=== PATIENT | male | born 1945 | race African-American/Black ===

== ENCOUNTER 2016-12-11 15:51 | Inpatient (IN) | payer BC, MEDICARE ==
[~2016-12-11] VITALS: Ht 188 cm; Wt 103.0 kg
[2016-12-11] MEDS ORDERED: LISINOPRIL 10MG TABLET PO ONE (16:30)
[2016-12-11] MEDS ORDERED: AMLODIPINE 2.5MG TABLET PO ONE (16:30)
[2016-12-11 16:49] LABS: BASOPHILS % 1.2 % (0.0-2.0); EOSINOPHILS % 1.4 % (0.0-5.0); HEMATOCRIT. 25.7 % (42.0-52.0); HEMOGLOBIN. 8.2 g/dL (14.0-18.0); LYMPHOCYTES % 9.4 % (20.0-50.0); MEAN CORPUSCULAR HEMOGLOBIN 26.1 pg (28.0-32.0); MEAN CORPUSCULAR VOLUME 81.9 fL (80.0-94.0); MEAN PLATELET VOLUME 8.1 fl (7.4-10.4); MONOCYTES % 10.4 % (2.0-8.0); NEUTROPHILS % 77.6 % (40.0-76.0); PLATELET 363 x1000/uL (130-400); RED BLOOD CELL COUNT 3.14 mill/uL (4.7-6.1); RED CELL DISTRIBUTION WIDTH 18.5 % (11.6-14.6)
[2016-12-11 16:53] LABS: CHLORIDE 93 mEq/L (98-107)
[2016-12-11 16:54] LABS: INR 1.1
[2016-12-11 17:03] LABS: CARBON DIOXIDE 33 mEq/L (21-32)
[2016-12-11 17:04] LABS: TROPONIN I 0.06 ng/mL (0.00-0.04)
[2016-12-11 20:00] VITALS: BP 163/80
[2016-12-11] MEDS ORDERED: CINA30 PO (20:58)
[2016-12-11] MEDS ORDERED: FURO-151 PO (20:58)
[2016-12-11] MEDS ORDERED: ATEN100T PO (20:58)
[2016-12-11 21:00] VITALS: BP 163/80
[2016-12-11] MEDS ORDERED: NIFE30TA94 PO (21:01)
[2016-12-11] MEDS ORDERED: CLON0.1T PO (21:01)
[2016-12-11] MEDS ORDERED: HYDR100T26 PO (21:01)
[2016-12-11] MEDS ORDERED: DORZ10DR7 BOTHEYE (21:05)
[2016-12-11] MEDS ORDERED: TIMO15DR12 BOTHEYE (21:05)
[2016-12-11] MEDS ORDERED: BIMA2.5D4 BOTHEYE (21:05)
[2016-12-11] MEDS ORDERED: BRIM15DR2 BOTHEYE (21:05)
[2016-12-11] MEDS ORDERED: IPRATROPIUM/ALBUTEROL 0.5-3(2.5)MG/3ML NEB HHN PRN (21:45)
[2016-12-11] MEDS ORDERED: HYDROCODONE/ACETAMINOPHEN 5/325MG TABLET PO PRN (21:45)
[2016-12-11] MEDS: LOSARTAN POTASSIUM 50 MG TABLET PO SCH (22:13)
[2016-12-11] MEDS: METOPROLOL TARTRATE 50MG TABLET PO SCH (22:13)
[2016-12-12] VITALS: BP 183/89
[2016-12-12 01:20] VITALS: BP 176/86
[2016-12-12] MEDS ORDERED: CLONIDINE 0.2MG TABLET PO PRN (02:00)
[2016-12-12 04:00] VITALS: BP 165/75
[2016-12-12 05:55] VITALS: BP 156/82
[2016-12-12 08:00] VITALS: BP 144/94
[2016-12-12] MEDS ORDERED: TIMOLOL MALEATE 0.5% OPHTH DROPS 5ML EACHEYE SCH (09:00)
[2016-12-12] MEDS ORDERED: DORZOLAMIDE 2% OPHTH 10 ML BOTTLE BOTHEYE SCH (09:00)
[2016-12-12] MEDS ORDERED: ASPIRIN 81MG TABLET PO SCH (09:00)
[2016-12-12] MEDS ORDERED: BRIMONIDINE 0.2% OPHTH DROPS 5ML EACHEYE SCH (09:00)
[2016-12-12] MEDS ORDERED: PANTOPRAZOLE SODIUM 40 MG/VIAL IV SCH (09:00)
[2016-12-12] MEDS: LOSARTAN POTASSIUM 50 MG TABLET PO SCH (09:04)
[2016-12-12] MEDS: METOPROLOL TARTRATE 50MG TABLET PO SCH (09:04)
[2016-12-12] MEDS ORDERED: LATANOPROST 0.005% OPHTH DROPS 2.5ML EACHEYE SCH (21:00)
== END 2016-12-12 12:05 | disposition left against medical advice (07) | DRG 314 ==
LOC: ER 16:02 → 7WST 17:05 → ENRESERV 18:53
PROVIDERS: ADMIT Internal Medicine; ATTEND Internal Medicine
DX: T82.838A Hemorrhage due to vascular prosthetic devices, implants and grafts, initial encounter (principal); N18.6 End stage renal disease; I12.0 Hypertensive chronic kidney disease with stage 5 chronic kidney disease or end stage renal disease; D63.8 Anemia in other chronic diseases classified elsewhere; N25.81 Secondary hyperparathyroidism of renal origin; Y84.1 Kidney dialysis as the cause of abnormal reaction of the patient, or of later complication, without mention of misadventure at the time of the procedure; Z53.21 Procedure and treatment not carried out due to patient leaving prior to being seen by health care provider; H40.9 Unspecified glaucoma; Z99.2 Dependence on renal dialysis; Z79.899 Other long term (current) drug therapy
CPT/HCPCS: 36415; 71010; 80053; 83880; 84484; 85025; 85610; 86850; 86900; 93005; 99285; C9113

== ENCOUNTER 2017-02-09 02:23 | Inpatient (IN) | payer MEDICARE ==
[~2017-02-09] VITALS: Ht 188 cm; Wt 103.0 kg
[~2017-02-09 02:23] MED LIST: ATEN100T PO; BIMA2.5D4 BOTHEYE; BRIM15DR2 BOTHEYE; CINA30 PO; CLON0.1T PO; DORZ10DR7 BOTHEYE; FURO-151 PO; HYDR100T26 PO; NIFE30TA94 PO; TIMO15DR12 BOTHEYE
[2017-02-09] MEDS ORDERED: LABETALOL HCL 20MG/4ML CARPUJECT IV ONE (02:45)
[2017-02-09] MEDS ORDERED: NITROGLYCERIN OINT 1GM/INCH UDPKT TD ONE (02:45)
[2017-02-09] MEDS ORDERED: FUROSEMIDE 40MG/4ML VIAL IV ONE (02:45)
[2017-02-09] MEDS ORDERED: ASPIRIN 81MG TABLET PO ONE (02:45)
[2017-02-09] MEDS ORDERED: LABETALOL 5MG/ML SYR 20 MG/4 ML SYRINGE IV NR (03:00)
[2017-02-09 03:07] LABS: HEMOGLOBIN. 8.4 g/dL (14.0-18.0); MEAN CORPUSCULAR HEMOGLOBIN 25.6 pg (28.0-32.0); MEAN CORPUSCULAR VOLUME 79.5 fL (80.0-94.0); MEAN PLATELET VOLUME 8.5 fl (7.4-10.4); PLATELET 376 x1000/uL (130-400); RED BLOOD CELL COUNT 3.27 mill/uL (4.7-6.1); RED CELL DISTRIBUTION WIDTH 18.9 % (11.6-14.6)
[2017-02-09 03:17] LABS: INR 1.1; PROTHROMBIN TIME 11.9 sec (9.4-11.6)
[2017-02-09 03:42] LABS: CARBON DIOXIDE 27 mEq/L (21-32); CHLORIDE 92 mEq/L (98-107); ETHANOL BLOOD < 10 mg/dL; TROPONIN I 0.03 ng/mL (0.00-0.04)
[2017-02-09] MEDS ORDERED: DEXTROSE 50% WATER 50ML SYRINGE IV NR (04:00)
[2017-02-09] MEDS ORDERED: CALCIUM CHLORIDE 1GM/10ML SYR IV NR (04:00)
[2017-02-09] MEDS ORDERED: CEFTRIAXONE 1 G PREMIX 50 ML IV NR (04:00)
[2017-02-09] MEDS ORDERED: SODIUM POLYSTYRENE SULFONATE 15 G/60 ML BOT PO NR (04:00)
[2017-02-09] MEDS ORDERED: INSULIN REGULAR (HUMULIN R) 300UNITS/3ML IV NR (04:00)
[2017-02-09] MEDS ORDERED: SODIUM BICARBONATE 8.4% 1 MEQ/ML 50ML SYR IV NR (04:00)
[2017-02-09] MEDS: AZITHROMYCIN 500 MG in DEXT 5% WATER 250 ML IV NR ×2 (06:38→07:30)
[2017-02-09 07:35] LABS: PLATELET ESTIMATE NORMAL
[2017-02-09 09:00] VITALS: BP 169/93
[2017-02-09] MEDS ORDERED: ATENOLOL 100 MG TABLET PO SCH (09:15)
[2017-02-09] MEDS ORDERED: ENOXAPARIN 40MG/0.4ML SYR SUBCUT SCH (09:15)
[2017-02-09] MEDS ORDERED: IPRATROPIUM/ALBUTEROL 0.5-3(2.5)MG/3ML NEB INH PRN (09:15)
[2017-02-09] MEDS ORDERED: FUROSEMIDE 40MG TABLET PO SCH (09:15)
[2017-02-09] MEDS ORDERED: CLONIDINE 0.1MG TABLET PO PRN (09:15)
[2017-02-09] MEDS ORDERED: ACETAMINOPHEN 325MG TABLET PO PRN (09:15)
[2017-02-09] MEDS ORDERED: HYDRALAZINE HCL 100MG TABLET PO SCH (09:15)
[2017-02-09] MEDS ORDERED: CLONIDINE 0.1MG TABLET PO SCH (09:15)
[2017-02-09] MEDS ORDERED: CINACALCET HCL 30MG TABLET PO SCH (09:15)
[2017-02-09] MEDS ORDERED: ENOXAPARIN 30MG/0.3ML SYR SUBCUT SCH (10:03)
[2017-02-09] MEDS ORDERED: DORZOLAMIDE 2% OPHTH 10 ML BOTTLE BOTHEYE SCH (11:00)
[2017-02-09] MEDS ORDERED: LEVOFLOXACIN 500MG PREMIX 100 ML IV SCH (11:30)
[2017-02-09 12:00] VITALS: BP 99/57
[2017-02-09] MEDS ORDERED: TIMOLOL MALEATE 0.5% OPHTH DROPS 5ML EACHEYE SCH (12:00)
[2017-02-09 12:59] VITALS: BP 188/99
[2017-02-09] MEDS ORDERED: SODIUM CHLORIDE 0.9% INJ 3ML FLUSH IVF SCH (14:00)
[2017-02-09 16:00] VITALS: BP 123/98
[2017-02-09] MEDS ORDERED: EPOETIN ALFA 10000UNITS/ML VIAL SUBCUT SCH (21:00)
[2017-02-11] MEDS ORDERED: LEVOFLOXACIN 250MG PREMIX 50 ML IV SCH (11:30)
== END 2017-02-09 19:52 | disposition home or self-care (01) | DRG 291 ==
LOC: ER 02:23 → EDBEDREQTM 04:39 → EDBEDREQ 04:39 → 7WST 06:25 → ENRESERV 07:02
PROVIDERS: ADMIT Internal Medicine; ATTEND Internal Medicine
PROC: 5A1D70Z Performance of Urinary Filtration, Intermittent, Less than 6 Hours Per Day (ICD-10-PCS; principal; 2017-02-09)
DX: I13.2 Hypertensive heart and chronic kidney disease with heart failure and with stage 5 chronic kidney disease, or end stage renal disease (principal); N18.6 End stage renal disease; R65.10 Systemic inflammatory response syndrome (SIRS) of non-infectious origin without acute organ dysfunction; I50.21 Acute systolic (congestive) heart failure; H40.9 Unspecified glaucoma; Z82.49 Family history of ischemic heart disease and other diseases of the circulatory system; Z89.512 Acquired absence of left leg below knee; Z91.15 Patient's noncompliance with renal dialysis; Z99.2 Dependence on renal dialysis
CPT/HCPCS: 36415; 71010; 80053; 82962; 83605; 83690; 84484; 85025; 85610; 87040; 93005; 96365; 96375; 99291; G0482; J0456; J0696; J0885; J1815; J1940; J1956; J3490; J7030; J7060

== ENCOUNTER 2017-12-29 05:41 | Emergency (ER) | payer MEDICARE ==
[~2017-12-29] VITALS: Ht 172.7 cm; Wt 83.4 kg
[~2017-12-29 05:41] MED LIST changes: -DORZ10DR7 BOTHEYE; +DORZ10DR8 BOTHEYE
[2017-12-29 06:22] LABS: HEMATOCRIT. 28.5 % (42.0-52.0); HEMOGLOBIN. 9.1 g/dL (14.0-18.0); MEAN CORPUSCULAR HEMOGLOBIN 26.7 pg (28.0-32.0); MEAN PLATELET VOLUME 8.1 fl (7.4-10.4); PLATELET 239 x1000/uL (130-400); RED CELL DISTRIBUTION WIDTH 20.8 % (11.6-14.6)
[2017-12-29 06:28] LABS: INR 1.2; PROTHROMBIN TIME 11.6 sec (9.1-11.1)
[2017-12-29 06:33] LABS: CHLORIDE 92 mEq/L (98-107)
[2017-12-29 06:39] LABS: ETHANOL BLOOD < 10 mg/dL
[2017-12-29 06:44] LABS: PHENOBARBITAL < 2.1 ug/mL (15.0-40.0)
[2017-12-29 07:02] LABS: CARBAMAZEPINE < 0.5 ug/mL (4-12); VALPROIC ACID < 3.0 ug/mL (50-100)
[2017-12-29 07:23] LABS: PLATELET ESTIMATE NORMAL
[2017-12-29] MEDS ORDERED: ASPIRIN 600MG SUPP PR ONE (08:30)
[2017-12-29] MEDS ORDERED: ASPIRIN 325MG TABLET PO ONE (08:30)
[2017-12-29] MEDS ORDERED: IOHEXOL-350 100 ML BOTTLE ONE (10:27)
[2017-12-29] MEDS ORDERED: ASPIRIN 600MG SUPP PR NR (10:30)
[2017-12-29] MEDS ORDERED: SODIUM CHLORIDE 0.9% 1,000 ML IV ONE (12:53)
[2017-12-29] MEDS ORDERED: ATROPINE SULFATE 1MG/10ML SYR ONE (13:39)
[2017-12-29] MEDS ORDERED: EPINEPHRINE 0.1MG/ML (1:10,000) 10ML SYR ONE ×3 (13:39→16:55)
[2017-12-29] MEDS ORDERED: CALCIUM CHLORIDE 1GM/10ML SYR IV ONE (13:42)
[2017-12-29] MEDS ORDERED: SODIUM BICARBONATE 7.5% 0.9 MEQ/ML 50ML SYR IV ONE (13:42)
[2017-12-29] MEDS ORDERED: SUCCINYLCHOLINE CHLORIDE 200MG/10ML IV ONE ×2 (14:15→15:00)
[2017-12-29] MEDS ORDERED: ETOMIDATE 2MG/ML 10ML VIAL IV ONE ×2 (14:15→15:00)
[2017-12-29] MEDS ORDERED: PROPOFOL 10MG/ML 100ML 100 ML IV ONE (15:00)
[2017-12-29] MEDS ORDERED: MIDAZOLAM HCL 50 MG in DEXTROSE 5% WATER 40 ML IV ONE (15:00)
[2017-12-29 15:35] VITALS: BP 46/24
[2017-12-29] MEDS ORDERED: DOPAMINE 400MG PREMIX 250 ML IV ONE ×3 (15:41→16:41)
[2017-12-29] MEDS ORDERED: PHENYLEPHRINE 40 MG in DEXT 5% WATER 246 ML IV PRN ×4 (16:00)
[2017-12-29] MEDS ORDERED: NOREPINEPHRINE 4 MG in DEXT 5% WATER 246 ML IV ONE ×4 (16:00)
[2017-12-29 16:04] LABS: BG CARBOXYHEMOGLOBIN 0.9 % (0.5-1.5); BG DEOXYHEMOGLOBIN 0.3 % (0.0-5.0); BG FRACTION INSPIRED OXYGEN 100; BG HCO3 ACT 13.2 mmol/L (22.0-26.0); BG METHEMOGLOBIN 0.1 % (0.0-1.5); BG OXYGEN SATURATION 99.7 % (92.0-98.5); BG OXYHEMOGLOBIN 98.7 % (94.0-97.0); BG PCO2 36.1 mmHg (35.0-45.0); BG PH 7.182 (7.350-7.450); BG PO2 339.7 mmHg (75.0-100.0); BG SAMPLE SITE RIGHT BRACHIAL; BG TIDAL VOLUME(mL) 550 mL; BG TOTAL HEMOGLOBIN 8.4 g/dL (12.0-18.0); BG VENT MODE VENT - A/C; BG VENT RATE 14 set
[2017-12-29] MEDS ORDERED: ATROPINE SULFATE 1MG/10ML SYR IV ONE (16:30)
[2017-12-29] MEDS ORDERED: VASOPRESSIN 10 UNIT in SODIUM CHLORIDE 0.9% 99.5 ML IV STA (16:35)
[2017-12-29] MEDS ORDERED: VASOPRESSIN 10 UNIT in SODIUM CHLORIDE 0.9% 99.5 ML IV PRN (16:45)
== END 2017-12-29 17:09 | disposition expired ==
LOC: ER 05:51 → EDBEDREQ 09:33 → EDBEDREQSVC 15:03 → EDBEDREQ 15:03 → ER 17:09 → CANBEDREQ 17:55
DX: G93.49 Other encephalopathy (principal); I63.9 Cerebral infarction, unspecified; I50.9 Heart failure, unspecified; I12.0 Hypertensive chronic kidney disease with stage 5 chronic kidney disease or end stage renal disease; N18.6 End stage renal disease; F13.10 Sedative, hypnotic or anxiolytic abuse, uncomplicated; Z99.2 Dependence on renal dialysis; Z79.899 Other long term (current) drug therapy
CPT/HCPCS: 31500; 36415; 36556; 36600; 70450; 70496; 70498; 70551; 71045; 80053; 80156; 80165; 80184; 80185; 82375; 82805; 82962; 83735; 83880; 84443; 84484; 85025; 85610; 87086; 92950; 93005; 96361; 96365; 96368; 96375; 99291; G0482; J0330; J0461; J1265; J2250; J2370; J3490; Q9967; 43760; J7030; J7050; J7060